=== PATIENT | female | born 1940 | race Caucasian/White ===

== ENCOUNTER → 2016-08-21 | Outpatient (CLI) | payer MEDICARE ==
[~2016-08-21] MED LIST: ASPIRIN 325MG325 MG PO; GABAPENTIN300 M1 PO; HYDROCODONE-APA1 TA1 PO; LEVOTHROID0.1 MG PO; LISINOPRIL 5MG T5 MG PO; MELOXICAM15 MG PO; NEURONTIN 300M300 MG PO; SENNA DOCUSATE1 TAB PO; SYNTHROID 0.1M0.1 MG PO
--- NOTE | 2016-08-23 11:02 | RADIOLOGY REPORT PS360 ---
DIG MAMM-SCREEN [facility]JAN W/CAD CAD Screening COMPARISON: Digital mammograms 08/06/2014 and 08/17/2015 INDICATION: There is a history of breast cancer patient's sister diagnosed after menopause. This been previous cyst aspiration left breast TECHNIQUE: Standard CC and MLO images were obtained. R2 CAD reviewed. FINDINGS: Prominent fibroglandular densities are seen in the central portions and upper outer quadrants of both breasts. There are few benign-appearing calcifications in the left breast. There is a stable small benign-appearing asymmetric density outer quadrant left breast. There is no suspicious lesion and there are no suspicious microcalcifications. IMPRESSION: Stable exam with no suspicious lesion seen recommend yearly follow-up BI-RADS CATEGORY: 2_Benign RECOMMENDED FOLLOWUP: 12M 12 MONTH FOLLOW-UP (A letter has been sent to the patient regarding results of the study.)
== END ==
LOC: RAD 09:43
DX: Z12.31 Encounter for screening mammogram for malignant neoplasm of breast (principal)
CPT/HCPCS: G0202

== ENCOUNTER 2017-02-02 09:01 | Day surgery (SDC) | payer MEDICARE ==
--- NOTE | 2017-02-02 10:16 | Operative Note ---
Colonoscopy ([facility]) Procedure date: 02/02/17 Date of : 40 Procedure:Colonoscopy Colonoscopy Indications: Mrs. Palencia is a 76-year-old female who is here for follow-up screening/ surveillance colonoscopy. Her last colonoscopy [address] Masood Spencer M.D. was normal. She reports no abdominal pain, weight loss, change in her bowel habits or rectal bleeding. She reports no family history of colon cancer. Performing Provider: Ry Escalante MD Referrring Provider: Scooby Shah M.D. Sedation: Fentanyl 100 mg IV/Versed 7 mg IV Procedure: Prior to the procedure, a history and physical exam was performed, and patient medications and allergies were reviewed. The risks and benefits of the procedure and the sedation options and risks were discussed with the patient. All questions were answered and informed consent was obtained. Patient identification and proposed procedure were verified by the physician and the nurse. The patient was placed in a left lateral decubitus position. Throughout the procedure, the patient's blood pressure, pulse, and oxygen saturations were monitored continuously. Findings: On digital rectal examination there was normal rectal tone. There were no external hemorrhoids. The colonoscope was introduced through the anal canal to the rectum and advanced to the cecum. The ileocecal valve and appendiceal orifice were identified. The scope was advanced a short distance into the ileum which appeared grossly normal. The scope was then withdrawn into the colon. The cecum, ascending, transverse, descending, sigmoid and rectum were grossly normal. There were no mucosal abnormalities identified. Upon retroflexion within the rectum there were grade 1 internal hemorrhoids. Impressions: 1. Normal colonoscopy with intubation of the terminal ileum Recommendations: The patient will not require any further screening/preventive colonoscopy. Complications: None EBL (ml): 0 at 1016
[2017-02-02 17:07] VITALS: BP 120/77
== END 2017-02-02 11:15 | disposition home or self-care (01) ==
LOC: SDC 09:01
PROVIDERS: Internal Medicine Gastroenterology
PROC: 0DJD8ZZ Inspection of Lower Intestinal Tract, Via Natural or Artificial Opening Endoscopic (ICD-10-PCS; principal; 2017-02-02 13:00)
DX: Z12.11 Encounter for screening for malignant neoplasm of colon (principal)